=== PATIENT | male | born 1945 | race Caucasian/White ===

== ENCOUNTER 2020-02-25 02:00 | Emergency (ER) | payer MEDICARE, OTHER, SELFPAY ==
[2020-02-25 02:10] VITALS: BP 134/98; PULSE 78; RESP 16; TEMP 36.7; O2SAT 98; BMI 28.8
--- NOTE | 2020-02-25 02:20 | ECG_ITS ---
APPROVED REPORT Exam: Resting ECG HR:61 bpm ECG Measurements Heart Rate 61 AXES ME 202 P 25 QRSd 94 QRS -32 QT 418 T 44 QTc 420 <Conclusion> Normal sinus rhythm Left axis deviation Voltage criteria for left ventricular hypertrophy Abnormal ECG Electronically signed by : Oni Lamb, 02/26/2020 06:47:11
[2020-02-25 02:31] LABS: Basophils # 0.1 K/mm3 (0-0.2); Basophils % 0.5 % (0.1-2.0); Eosinophils # 0.2 K/mm3 (0.0-0.4); Eosinophils % 1.6 % (0.1-12.0); Hematocrit 40.9 % (42.0-52.0); Hemoglobin 14.1 g/dL (14.1-18.0); Lymphocytes # 1.5 K/mm3 (0.7-4.5); Lymphocytes % 14.3 % (10-50); Mean Corpuscular HGB Conc 34.6 g/dL (31.8-35.4); Mean Corpuscular Hemoglobin 29.4 pg (27.0-31.2); Mean Corpuscular Volume 85.1 fl (80-94); Mean Platelet Volume 9.5 fl (7.4-10.4); Monocytes # 0.8 K/mm3 (0.1-1.0); Monocytes % 7.3 % (1.7-9.3); Neutrophils # 8.2 K/mm3 (1.8-7.8); Neutrophils % 76.3 % (37.0-80.0); Platelet Count 174 K/mm3 (142-424); Red Blood Count 4.81 M/mm3 (4.60-6.20); Red Cell Distribution Width 13.8 % (11.5-17.5); White Blood Count 10.7 K/mm3 (4.8-10.8)
[2020-02-25 02:32] LABS: Anion Gap 11.1 mEq/L (5-15); Blood Urea Nitrogen 33 mg/dl (9-20); Calcium 9.5 mg/dl (8.4-10.2); Carbon Dioxide 23 mmol/L (22.0-30.0); Chloride 103 mmol/L (98-107); Creatinine Clearance Estimated 45 mL/min (50-200); Estimated Glomerular Filt Rate 39 ml/min (>60); GFR (African American) 48 ML/MIN (>60); Glucose 247 mg/dl (74-100); Potassium 4.1 mmoL/L (3.5-5.1); Sodium 133 mmol/L (136-145)
[2020-02-25 02:44] LABS: Troponin I 0.02 ng/ml (0.00-0.034)
--- NOTE | 2020-02-25 03:21 | HMH.EDDIZZ ---
ED Disposition Clinical Impression: Hypertensive urgency, Renal insufficiency, Diabetes 1.5, managed as type 2 Disposition: Home, Self-Care Condition on Discharge: Good Instructions: Dizziness, Nonvertigo Additional Instructions: see pcp wednesday for follow up Referrals: Provider,Referral, [Primary Care Provider] - - Critical Care Critical Care Time: No Attestation: On 02/25/20, the high probability of a clinically significant, sudden or life threatening deterioration of the following system(s) required my full and direct attention, intervention and personal management. The time I documented below is in addition to time spent performing reported procedures but includes the following listed in this critical care notation. Medical Decision Making - Medical Records Medical records reviewed: Yes: I reviewed the patient's medical records. - [place] Inquiry Pt receiving controlled substance: No Vital Signs: 02/25/20 02:10 Temperature 98.0 F Temperature Source Oral Pulse Rate [Right] 78 Respiratory Rate 16 Blood Pressure [Right Arm] 134/98 H Blood Pressure Mean [Right Arm] 110 Blood Pressure Source [Right Arm] Automatic Cuff Blood Pressure Position [Right Arm] Supine 02 Sat by Pulse Oximetry 98 Oxygen Delivery Method Room Air - Lab Data Lab results reviewed: Yes: I reviewed the patient's lab results. Lab Results 02/25/20 02:15: WBC 10.7, RBC 4.81, Hgb 14.1, Hct 40.9 L, MCV 85.1, MCH 29.4, MCHC 34.6, RDW 13.8, Plt Count 174, MPV 9.5, Neut % (Auto) 76.3, Lymph % (Auto) 14.3, [place] % (Auto) 7.3, Eos % (Auto) 1.6, Baso % (Auto) 0.5, Neut # (Auto) 8.2 H, Lymph # (Auto) 1.5, [place] # (Auto) 0.8, Eos # (Auto) 0.2, Baso # (Auto) 0.1 02/25/20 02:15: Sodium 133 L, Potassium 4.1, Chloride 103, Carbon Dioxide 23, Anion Gap 11.1, BUN 33 H, Creatinine 1.70 H, Estimated Creat Clear 45, Estimated GFR 39 L, Est GFR ( Amer) 48 L, Glucose 247 H, Calcium 9.5, Troponin I 0.02 Result diagrams: 02/25/20 02:15 02/25/20 02:15 Orders (Tests/Meds): ORDERS Category Date Time Status Hemoglobin A1C Stat Lab 02/25/20 03:24 Ordered Troponin I Q3H Lab 02/25/20 05:30 Ordered Troponin I Q3H Lab 02/25/20 08:30 Ordered - ECG Data Tracing #1 Normal Sinus Rhythm: Yes Ischemic changes: non-specific ST-T wave changes - Reevaluation(s) Time: 03:31 Reevaluation #1: doing better Medical Decision Narrative: no clinical evid of cva Dizzy HPI - General Chief Complaint: Dizziness Stated Complaint: High BP Leg is jerking;blurred vision Time Seen by Provider: 02/25/20 02:20 Mode of Arrival: Ambulatory Source of Information: Patient, Medical Record Limitations: No Limitations Description of Symptoms (Recalled from ER Triage Doc. 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 HPI Narrative: elevated bp and hx of dizzyness and lt leg twitching MD complaint: lightheadedness Onset (ago): hour(s) Timing: gradual onset, waxing/waning History of similar episodes: No History of trauma: No Severity: moderate Associated symptoms: denies other symptoms - Related Data Home Medications Medication Instructions Recorded Confirmed Atorvastatin Calcium [Atorvastatin 40 mg PO DAILY 02/25/20 02/25/20 40mg Tab] Glimepiride 4 mg PO DAILY 02/25/20 02/25/20 Hydralazine HCl 50 mg PO BID 02/25/20 02/25/20 Insulin Detemir [Levemir 20 units SQ BID 02/25/20 02/25/20 100units/mL 3mL flexpen] Isosorbide Mononitrate [Imdur 60mg 60 mg PO DAILY 02/25/20 02/25/20 ER tablet] carvediloL [Carvedilol 12.5mg Tab] 12.5 mg PO BID 02/25/20 02/25/20 Allergies Allergy/AdvReac Type Severity Reaction Status Date / Time No Known Allergies Allergy Verified 04/28/19 13:20 [facility] History - Hepatitis A Screen Drug use history?: No High risk sexual behaviors?: No History of sexually transmitted infection?: No Currently employed?: No
[2020-02-25 03:42] VITALS: BP 136/90; PULSE 76; RESP 14; TEMP 36.7; O2SAT 98
[2020-02-25 03:51] LABS: Hemoglobin A1C 6.6 % (4.0-6.0)
== END 2020-02-25 03:43 | disposition home or self-care (01) ==
PROVIDERS: Emergency Provider Emergency Medicine
DX: I16.1 Hypertensive emergency (principal); N28.9 Disorder of kidney and ureter, unspecified; E13.9 Other specified diabetes mellitus without complications; Z79.899 Other long term (current) drug therapy
CPT/HCPCS: 80048; 83036; 84484; 85025; 93005; 99282

== ENCOUNTER → 2021-05-30 10:17 | Outpatient (CLI) | payer MEDICARE, OTHER, SELFPAY ==
--- NOTE | 2021-05-30 | CA_ITS ---
APPROVED REPORT Exam: Pharmacologic Technologist: rahul camejo, Ht: 5 ft 8 in Wt: 195 lbs BSA: 2.02 m2 BP: 204/74 mmHg Rhythm: Sinus toby, abnormal Indications: CAD, Abn EKG Medical History Medical History: HTN Medications: Hydralazine,,,,, Isosorbide,,,,, Gabapentin,,,,, Carvedilol,,,,, INSULIN,,,,, Lipitor,,,,, Vit D,,,,, Hydroxyzine,,,,, Cardiac Risk Factors: HTN Stress Test Details Test: LEXISCAN HR Resting HR: 53 bpm Max Heart Rate (APMHR): 142.197517 bpm Max HR Achieved: 69 bpm Target HR (85% APMHR): 120.683294 bpm % of APMHR: 48.59 Recovery HR: 59 bpm BP Resting BP: 204/74 mmHg Max BP: 204/74 mmHg Recovery BP: 172.0/62.0 mmHg ECG Resting ECG: sinus toby, abnormal Clinical Exercise duration: 04:46 min Highest Stage Achieved: Stress ECG Conclusion Lexiscan portion completed. Pt complained SOB at peak infusion, resolved in recovery. No CP. Occasional PVC. Less than 1.5mm ST depression. Images to follow. Test Summary REST 07:12 . . 53 . 204/ 74 . . Stage 1 . . . . . . . Myoview Injected Stage 1 01:00 . . 59 . . . . Stage 2 01:00 . . 66 . . . . Stage 3 01:00 . . 64 . 169/ 64 . . Stage 4 01:00 . . 62 . . . . Stage 4 01:46 . . 60 . 180/ 61 . Stop exercise at 04:46 RECOVERY 01:00 . . 59 . 181/ 62 . . RECOVERY 02:00 . . 60 . 181/ 62 . . RECOVERY 03:00 . . 62 . 172/ 62 . . RECOVERY 04:00 . . 57 . 172/ 62 . . Electronically signed by : Melo Kemp MD 06/01/2021 08:50:31
--- NOTE | 2021-05-30 10:26 | CA_ITS ---
APPROVED REPORT EXAM: Comprehensive 2D, Doppler, and color-flow Echocardiogram [place] Driver: Veronique Mckinley CRT Ht: 5 ft 8 in Wt: 195lbs BSA: 2.02 BP: 128/84 mmHg Indications: Diabetes, Hyperlipidemia, Hypertension/HDD 2D Dimensions LVOT 1.45 cm (M/F) 1.5-2.5 M-Mode Dimensions RVDd 2.96 cm (0.9-2.6) LA Diam 4.24 cm (1.9-4.0) LVDd 5.84 cm (3.5-5.7) Ao Diam 4.22 cm (2.0-3.7) LVDs 4.48 cm (3.5-5.7) IVSd 2.13 cm (0.6-1.1) PWd 0.82 cm (0.6-1.1) EF (Teich) 45.90% FS 23.30% EDV (Teich) 169.20 mL TAPSE 1.74 (<1.7) ESV (Teich) 91.50 mL LV Diastology E Decel Time 300.00 (160-240 msec) E/A Ratio 1.00 MED E' 2.40 (< 7 cm/sec) MED A' 5.20 cm/s E'/MED E' Ratio 40.13 (>14) LAT E' 6.90 (<10 cm/sec) LAT A' 8.60 cm/s E/LAT E' Ratio 13.96 (>14) Aortic Valve AI PHT 570.00 ms AO Peak GR. 8.60 mmHg Mitral Valve MV A Velocity 96.00 (40-130 cm/s) E/A Ratio 1.00 MV Decel. Time 300.00 (160-240 ms) Pulmonary Valve PV Peak Velocity 178.00 (50-150 cm/s) Tricuspid Valve TR P. Velocity 246.00 cm/s RAP Estimate 10.00 mmHg RVSP 34.30 mmHg Left Ventricle Left atrium is mildly enlarged, left ventricle is normal size, mild concentric left ventricular hypertrophy, visually estimated ejection fraction 55% with no regional wall motion abnormality, grade 1 diastolic dysfunction seen with tissue Doppler evidence of raise left atrial pressure. Right Ventricle Right atrium and right ventricle are mildly enlarged with normal contractility. Aortic Valve Aortic valve is thickened and calcified without Doppler evidence of aortic stenosis, there is mild aortic insufficiency. Mitral Valve Mitral valve leaflets are minimally thickened, there is mild mitral regurgitation. Tricuspid Valve Tricuspid valve grossly normal, there is mild tricuspid regurgitation, tricuspid regurgitation jet velocity is inadequate for calculation of the right ventricular systolic pressure. Pulmonic Valve Pulmonic valve is minimally fibrosed, there is mild pulmonic insufficiency. Great Vessels Aortic root is normal size. No significant pericardial effusion noted. Conclusion 1. Mild biatrial enlargement, normal left ventricular size, mild concentric left ventricular hypertrophy, visually estimated ejection fraction 55% with no regional wall motion abnormality, grade 1 diastolic dysfunction seen with tissue Doppler evidence of raise left atrial pressure. 2. Mildly enlarged right ventricle with normal contractility. 3. Thickened and calcified aortic valve without aortic stenosis, there is mild aortic insufficiency. 4. Mild mitral and tricuspid regurgitation. 5. No significant pericardial effusion noted. Electronically signed by : Melo Kemp MD 05/30/2021 12:35:20
--- NOTE | 2021-05-30 10:26 | CA_ITS ---
APPROVED REPORT Relish Blender: Radha Ramirez RVT Laterality: Bilateral Study Quality: Good Indications: carotid bruit Risk Factors Hypertension: Hyperlipidemia Diabetes CAD Doppler Spectral Velocity Analysis ECA (R) 134.70/4.30 cm/s ECA (L) 268.20/13.70 cm/s dICA (R) 110.10/15.00 cm/s dICA (L) 94.50/16.50 cm/s Home (R) 127.20/17.10 cm/s Home (L) 87.00/15.00 cm/s pICA (R) 109.10/13.90 cm/s pICA (L) 103.50/16.50 cm/s dCCA (R) 119.80/13.90 cm/s dCCA (L) 92.00/5.30 cm/s pCCA (R) 96.20/9.60 cm/s pCCA (L) 104.80/6.40 cm/s Vert (R) 42.80/10.70 cm/s Vert (L) 67.70/7.70 cm/s ICA/CCA 1.06 ICA/CCA 1.13 Findings Study suggests 20-49% stenosis of the right internal cartoid artery. Study suggests 20-49% stenosis of the left internal cartoid artery. Antegrade flow seen bilateral vertebral arteries. Conclusion Study suggests 20-49% stenosis of the right internal cartoid artery. Study suggests 20-49% stenosis of the left internal cartoid artery. Antegrade flow seen bilateral vertebral arteries. Electronically signed by : Holger Dempsey MD 05/30/2021 14:20:29
--- NOTE | 2021-05-30 11:28 | NM_ITS ---
APPROVED REPORT Exam: Nuclear Stress Test Indication: fatigue Patient Location: Outpatient Stress Tech: Melissa Lewis [place] Tech:Paris SamuelESTEFANÍA RT(R)(N) Ht: 5 ft 8 in Wt: 195 lbs HR: 53 bpm BP: 204/74 mmHg BSA: 2.02 m2 BMI: 29.6 History: fatigue Procedure: Patient received a 0.4 mg of intravenous Lexiscan, resting heart rate 53 bpm, resting blood pressure 204/74 mmHg, with Lexiscan maximum heart rate achived was 69 bpm which is Less than 85 85 % of the maximum predicted heart rate and blood pressure was 204/74 mmHg. With Lexiscan, patient denied any complaint of chest pain. Electrocardiogram Resting electrocardiogram shows sinus rhythm nonspecific ST-T changes, with Lexiscan there is less than 1.[address] segment depression noted from the baseline EKG. The EKG portion of the Lexiscan is nondiagnostic. Cardiac Stress and Resting SPECT Images: Cardiac Stress and Resting SPECT images were obtained using technetium 99m Myoview 32.9 mCi stress and 10.89 mCi at rest. Gated SPECT for analysis of segmental wall motion and calculation of the ejection fraction also done. Prone images were also obtained. Cardiac stress and resting SPECT images show a small area of nontransmural myocardial scarring involving the posterolateral wall, computer derived ejection fraction is 53% with mild posterolateral wall hypokinesis, right ventricle is normal size and contractility. Conclusion: 1. The EKG portion of the Lexiscan is nondiagnostic. 2. Scintigraphic evidence of small area of nontransmural myocardial scarring involving the posterolateral wall, computer derived ejection fraction is 53% with segmental wall motion abnormality described above, right ventricle is normal size and contractility. 3. Abnormal Lexiscan Myoview study. Electronically signed by : Melo Kemp MD 06/01/2021 08:58:34
== END ==
PROVIDERS: PCP Nurse Practitioner Family; Visit Provider Internal Medicine
DX: E11.9 Type 2 diabetes mellitus without complications (principal); E78.5 Hyperlipidemia, unspecified; I10 Essential (primary) hypertension; I25.10 Atherosclerotic heart disease of native coronary artery without angina pectoris; N28.9 Disorder of kidney and ureter, unspecified; R09.89 Other specified symptoms and signs involving the circulatory and respiratory systems; Z95.1 Presence of aortocoronary bypass graft; Z79.4 Long term (current) use of insulin
CPT/HCPCS: 78452; 93017; 93306; 93880; A9502; J2785

== ENCOUNTER → 2021-06-04 12:22 | Outpatient (CLI) | payer MEDICARE, OTHER, SELFPAY ==
[2021-06-04 14:28] LABS: Anion Gap 17.4 mEq/L (5-15); Blood Urea Nitrogen 35 mg/dl (9-20); Calcium 9.4 mg/dl (8.4-10.2); Carbon Dioxide 24 mmol/L (22.0-30.0); Chloride 102 mmol/L (98-107); Estimated Glomerular Filt Rate 37 ml/min (>60); GFR (African American) 44 ML/MIN (>60); Glucose 170 mg/dl (74-100); Potassium 5.4 mmoL/L (3.5-5.1); Sodium 138 mmol/L (136-145)
== END ==
PROVIDERS: Visit Provider Nurse Practitioner Family
DX: E11.9 Type 2 diabetes mellitus without complications (principal); E78.5 Hyperlipidemia, unspecified; I10 Essential (primary) hypertension; I25.10 Atherosclerotic heart disease of native coronary artery without angina pectoris; N28.9 Disorder of kidney and ureter, unspecified; Z95.1 Presence of aortocoronary bypass graft; Z79.4 Long term (current) use of insulin
CPT/HCPCS: 36415; 80048

== ENCOUNTER → 2021-07-11 14:17 | Outpatient (CLI) | payer MEDICARE, OTHER, SELFPAY ==
--- NOTE | 2021-07-11 14:24 | XR_ITS ---
PROCEDURE: XR CHEST 2V CLINICAL HISTORY: Dyspnea, unspecified COMPARISON: No exams were available for comparison FINDINGS: Prior CABG. There is borderline cardiomegaly. Pulmonary vessels are slightly engorged. Patchy density is present in the left lung base suggesting an area of infiltrate. The lungs are otherwise clear Ankylosis of the thoracic spine. IMPRESSION: Mild CHF with possible left basilar infiltrate Dictated by: Holger Dempsey MD 07/11/2021 14:38 Holger Dempsey MD in [place] 07/11/2021 14:38
== END ==
PROVIDERS: PCP Nurse Practitioner Family; Visit Provider Nurse Practitioner Family
DX: R06.00 Dyspnea, unspecified (principal)
CPT/HCPCS: 71046

== ENCOUNTER → 2021-07-14 08:33 | Outpatient (CLI) | payer MEDICARE, OTHER, SELFPAY ==
[2021-07-14 09:03] LABS: Blood Urea Nitrogen 34 mg/dl (9-20); Estimated Glomerular Filt Rate 39 ml/min (>60); GFR (African American) 47 ML/MIN (>60)
== END ==
PROVIDERS: PCP Nurse Practitioner Family; Visit Provider Nurse Practitioner Family
DX: I69.392 Facial weakness following cerebral infarction (principal); R41.0 Disorientation, unspecified; F03.90 Unspecified dementia, unspecified severity, without behavioral disturbance, psychotic disturbance, mood disturbance, and anxiety
CPT/HCPCS: 36415; 82565; 84520

== ENCOUNTER → 2021-08-14 11:49 | Outpatient (CLI) | payer MEDICARE, OTHER, SELFPAY ==
[2021-08-14 13:37] LABS: Chloride 105 mmol/L (98-107); Potassium 4.7 mmoL/L (3.5-5.1); Sodium 141 mmol/L (136-145)
[2021-08-14 13:40] LABS: Anion Gap 15.7 mEq/L (5-15); Blood Urea Nitrogen 41 mg/dl (9-20); Calcium 9.3 mg/dl (8.4-10.2); Carbon Dioxide 25 mmol/L (22.0-30.0); Estimated Glomerular Filt Rate 37 ml/min (>60); GFR (African American) 44 ML/MIN (>60); Glucose 165 mg/dl (74-100)
== END ==
PROVIDERS: Visit Provider Physician Assistant
DX: E78.5 Hyperlipidemia, unspecified (principal); I10 Essential (primary) hypertension; I25.10 Atherosclerotic heart disease of native coronary artery without angina pectoris; I35.1 Nonrheumatic aortic (valve) insufficiency; N28.9 Disorder of kidney and ureter, unspecified; Z95.1 Presence of aortocoronary bypass graft
CPT/HCPCS: 36415; 80048

== ENCOUNTER 2021-12-04 01:49 | Emergency (ER) | payer MEDICARE, OTHER, SELFPAY ==
[2021-12-04 01:51] VITALS: BP 160/61; PULSE 52; RESP 16; TEMP 36.4; O2SAT 99; BMI 30.4
--- NOTE | 2021-12-04 02:03 | CT_ITS ---
PROCEDURE INFORMATION: Exam: CT Abdomen And Pelvis With Contrast Exam date and time: 12/04/2021 2:03 AM Age: 76 years old Clinical indication: Abdominal pain; Additional info: Abd pain TECHNIQUE: Imaging protocol: Computed tomography of the abdomen and pelvis with contrast. Radiation optimization: All CT scans at this facility use at least one of these dose optimization techniques: automated exposure control; mA and/or kV adjustment per patient size (includes targeted exams where dose is matched to clinical indication); or iterative reconstruction. Contrast material: ISOVUE; Contrast volume: 75 ml; Contrast route: IV; COMPARISON: CR XR CHEST 2V 07/11/2021 2:28 PM FINDINGS: Lungs: Moderate scarring and atelectasis in the lower lungs. Pleural spaces: Small pleural effusions, left larger than right. Heart: Coronary artery disease. Cardiomegaly. Aortic valve calcifications. Liver: Mild periportal edema is nonspecific. Gallbladder and bile ducts: Cholelithiasis. Pancreas: Normal. No ductal dilation. Spleen: Normal. No splenomegaly. Adrenal glands: Normal. No mass. Kidneys and ureters: Normal. No hydronephrosis. Stomach and bowel: Unremarkable. No obstruction. No mucosal thickening. Appendix: Unremarkable appendix. Intraperitoneal space: Unremarkable. No free air. No significant fluid collection. Vasculature: Interlobular septal thickening in the lung bases most likely represents pulmonary venous congestion. Advanced atherosclerotic disease of the arteries. Lymph nodes: Unremarkable. No enlarged lymph nodes. Urinary bladder: Borderline abnormal urinary bladder wall thickening. Reproductive: Mild prostate enlargement. Bones/joints: The lumbar spine demonstrates moderate degenerative changes at multiple levels. Status post median sternotomy. Soft tissues: Bilateral gynecomastia. Edema in the anterior abdominal wall is nonspecific. IMPRESSION: 1. Interlobular septal thickening in the lung bases most likely represents pulmonary venous congestion. 2. Mild periportal edema is nonspecific. Please exclude acute hepatitis. 3. Cholelithiasis. 4. Borderline abnormal urinary bladder wall thickening. Please exclude infection. 5. Small pleural effusions, left larger than right. 6. Edema in the anterior abdominal wall is nonspecific. Please exclude cellulitis.
[2021-12-04 02:15] LABS: Basophils % 0.5 % (0.1-2.0); Eosinophils # 0.1 K/mm3 (0.0-0.4); Eosinophils % 0.9 % (0.1-12.0); Hematocrit 31.9 % (42.0-52.0); Hemoglobin 10.9 g/dL (14.1-18.0); Lymphocytes # 0.7 K/mm3 (0.7-4.5); Lymphocytes % 7.1 % (10-50); Mean Corpuscular HGB Conc 34.1 g/dL (31.8-35.4); Mean Corpuscular Hemoglobin 30.2 pg (27.0-31.2); Mean Corpuscular Volume 88.4 fl (80-94); Mean Platelet Volume 10.1 fl (7.4-10.4); Monocytes # 0.5 K/mm3 (0.1-1.0); Monocytes % 5.4 % (1.7-9.3); Neutrophils # 8.4 K/mm3 (1.8-7.8); Neutrophils % 86.1 % (37.0-80.0); Platelet Count 168 K/mm3 (142-424); Red Blood Count 3.61 M/mm3 (4.60-6.20); Red Cell Distribution Width 14.6 % (11.5-17.5); White Blood Count 9.8 K/mm3 (4.8-10.8)
[2021-12-04 02:18] LABS: MANUAL DIFFERENTIAL MANUAL DIFFERENTIAL (MANUAL DIFF)
[2021-12-04 02:23] LABS: Alanine Aminotransferase 65 U/L (12-78); Albumin Level 3.8 g/dl (3.5-5.0); Albumin/Globulin Ratio 1.2 (1.1-1.8); Alkaline Phosphatase 193 U/L (38-126); Amylase 87 U/L (30-110); Anion Gap 10.2 mEq/L (5-15); Aspartate Amino Transferase 117 U/L (17-59); Bilirubin,Total 1.8 mg/dl (0.2-1.3); Blood Urea Nitrogen 41 mg/dl (9-20); Calcium 8.8 mg/dl (8.4-10.2); Carbon Dioxide 26 mmol/L (22.0-30.0); Chloride 105 mmol/L (98-107); Creatinine Clearance Estimated 43 mL/min (50-200); Estimated Glomerular Filt Rate 37 ml/min (>60); GFR (African American) 44 ML/MIN (>60); Globulin 3.1 g/dL (1.3-3.2); Glucose 249 mg/dl (74-100); Lipase 229 U/L (23-300); Potassium 4.2 mmoL/L (3.5-5.1); Sodium 137 mmol/L (136-145); Total Protein,Serum 6.9 g/dl (6.3-8.2)
[2021-12-04 02:28] LABS: C-Reactive Protein 16.4 mg/L (0-4)
--- NOTE | 2021-12-04 02:34 | HMH.EDNVD ---
ED Disposition Clinical Impression: Renal insufficiency Abdominal pain Qualifiers: Abdominal location: epigastric Qualified Code(s): R10.13 - Epigastric pain DM2 (diabetes mellitus, type 2) Qualifiers: Diabetes mellitus senior living insulin use: unspecified senior living insulin use status Diabetes mellitus complication status: with other specified complication Qualified Code(s): E11.69 - Type 2 diabetes mellitus with other specified complication Cholelithiasis Qualifiers: Cholelithiasis location: gallbladder Cholecystitis presence: without cholecystitis Biliary obstruction: without biliary obstruction Qualified Code(s): K80.20 - Calculus of gallbladder without cholecystitis without obstruction Disposition: Home, Self-Care Condition on Discharge: Good Instructions: DI for Acute Abdominal Pain Additional Instructions: see pcp for follow up Referrals: Provider,Referral, MD [Primary Care Provider] - - Critical Care Critical Care Time: No Attestation: On 12/04/21, the high probability of a clinically significant, sudden or life threatening deterioration of the following system(s) required my full and direct attention, intervention and personal management. The time I documented below is in addition to time spent performing reported procedures but includes the following listed in this critical care notation. Medical Decision Making - Medical Records Medical records reviewed: Yes: I reviewed the patient's medical records. - [place] Inquiry Pt receiving controlled substance: No Vital Signs: 12/04/21 01:51 Temperature 97.6 F Temperature Source Oral Pulse Rate [Right] 52 L Respiratory Rate 16 Blood Pressure [Right Arm] 160/61 H Blood Pressure Mean [Right Arm] 94 02 Sat by Pulse Oximetry 99 - Lab Data Lab results reviewed: Yes: I reviewed the patient's lab results. Lab Results 12/04/21 02:04: WBC 9.8, RBC 3.61 L, Hgb 10.9 L, Hct 31.9 L, MCV 88.4, MCH 30.2, MCHC 34.1, RDW 14.6, Plt Count 168, MPV 10.1, Neut % (Auto) 86.1 H, Lymph % (Auto) 7.1 L, [place] % (Auto) 5.4, Eos % (Auto) 0.9, Baso % (Auto) 0.5, Neut # (Auto) 8.4 H, Lymph # (Auto) 0.7, [place] # (Auto) 0.5, Eos # (Auto) 0.1, Baso # (Auto) 0.0, Total Counted 100, Neutrophils % (Manual) 89 H, Lymphocytes % (Manual) 10, Eosinophils % (Manual) 1, Platelet Estimate Normal, RBC Morphology Normal, ESR > 140 H 12/04/21 02:04: Sodium 137, Potassium 4.2, Chloride 105, Carbon Dioxide 26, Anion Gap 10.2, BUN 41 H, Creatinine 1.80 H, Estimated Creat Clear 43, Estimated GFR 37 L, Est GFR ( Amer) 44 L, Glucose 249 H, Calcium 8.8, Total Bilirubin 1.8 H, AST 117 H, ALT 65, Alkaline Phosphatase 193 H, C-Reactive Protein 16.4 H, Total Protein 6.9, Albumin 3.8, Globulin 3.1, Albumin/Globulin Ratio 1.2, Amylase 87, Lipase 229, Procalcitonin 0.131 12/04/21 02:04: Troponin I 0.01 12/04/21 04:00: Urine Color Yellow, Urine Appearance Clear, Urine pH 6.0, Ur Specific [place] 1.015, Urine Protein 1+, Urine Glucose (UA) Trace, Urine Ketones Negative, Urine Blood Negative, Urine Nitrate Negative, Urine Bilirubin Negative, Urine Urobilinogen 0.2, Ur Leukocyte Esterase Negative, Urine RBC 3-5, Urine WBC Occasional, Urine Bacteria Trace Result diagrams: 12/04/21 02:04 12/04/21 02:04 Orders (Tests/Meds): ED MEDICATIONS Generic Name Dose Route Start Last Admin Trade Name Freq PRN Reason Stop Dose Admin Sodium Chloride 1,000 mls @ 999 mls/hr 12/04/21 02:15 12/04/21 02:09 Sod Chlor 0.9% 1000ml Bag IV 12/04/21 03:15 999 mls/hr .Q1H1M BONNY Administration Sodium Chloride 8 ml 12/04/21 02:04 Sodium Chloride 0.9% 10ml Vial IV 01/03/22 02:03 NEEDED PRN dilute pepcid Discontinued Medications Generic Name Dose Route Start Last Admin Trade Name Freq PRN Reason Stop Dose Admin Famotidine 20 mg 12/04/21 02:04 12/04/21 02:09 Famotidine 20mg/2ml Vial IV 12/04/21 02:05 20 mg ONCE ONE Administration Iopamidol 75 ml 12/04/21 02:54 12/04/21 02:55 Iop
[2021-12-04 02:42] LABS: Erythrocyte Sedimentation Rate > 140 mm/hr (0-20); Procalcitonin 0.131 ng/mL (0.0-2.0)
[2021-12-04 03:05] LABS: Eosinophils % 1 % (0-3); Lymphocytes % 10 % (10-50); Neutrophils % 89 % (42-76); Total Cells Counted 100
[2021-12-04 03:06] LABS: Platelet Estimate Normal; RBC Morphology Normal; Troponin I 0.01 ng/ml (0.00-0.034)
--- NOTE | 2021-12-04 03:17 | ECG_ITS ---
APPROVED REPORT Exam: Resting ECG HR:61 bpm ECG Measurements Heart Rate 61 AXES MA 212 P 44 QRSd 106 QRS 1 QT 424 T 21 QTc 427 Conclusion SINUS RHYTHM WITH FIRST DEGREE AV BLOCK LEFT VENTRICULAR HYPERTROPHY AND ST-T CHANGE [VOLTAGE CRITERIA PLUS ST/T ABNORMALITY] ABNORMAL ECG UNCONFIRMED REPORT Electronically signed by : Oni Lamb MD 12/05/2021 19:24:40
[2021-12-04 03:18] VITALS: BP 147/54; PULSE 63; RESP 16; O2SAT 94
[2021-12-04 04:10] LABS: Microscopic, Urine URINE MICROSCOPIC (MICROSCOPIC)
[2021-12-04 04:11] LABS: Appearance,Urine CLEAR (Clear); Bilirubin,Urine Negative (Negative); Blood, Urine Negative (Negative); Color,Urine YELLOW (Yellow); Glucose,Urine (UA) TRACE (Negative); Ketones,Urine Negative (Negative); Leukocyte Esterase,Urine Negative (Negative); Nitrate,Urine Negative (Negative); Protein,Urine 1+ (Negative); Specific Gravity, Urine 1.015 (1.005-1.030); Urobilinogen,Urine 0.2 EU/dl (0.2)
[2021-12-04 04:33] LABS: Bacteria,Urine Trace /lpf; WBC,Urine Occasional #/hpf (0-3)
[2021-12-04 04:40] VITALS: BP 115/42; PULSE 63; RESP 16; TEMP 36.9; O2SAT 94
== END 2021-12-04 04:50 | disposition home or self-care (01) ==
PROVIDERS: Emergency Provider Emergency Medicine
DX: K80.20 Calculus of gallbladder without cholecystitis without obstruction (principal); N28.9 Disorder of kidney and ureter, unspecified; E11.65 Type 2 diabetes mellitus with hyperglycemia; Z95.1 Presence of aortocoronary bypass graft; Z79.899 Other long term (current) drug therapy
CPT/HCPCS: 74177; 80053; 81001; 82150; 83690; 84145; 84484; 85007; 85025; 85651; 86140; 93005; 96365; 96375; 99283; 99284; J2405; Q9967

== ENCOUNTER → 2022-03-30 10:26 | Outpatient (CLI) | payer MEDICARE, OTHER, SELFPAY ==
--- NOTE | 2022-03-30 10:31 | US_ITS ---
FINAL REPORT TECHNIQUE: Ultrasound images of the kidneys were obtained. CLINICAL HISTORY: .hypertension FINDINGS: US RETROPERITONEAL The right kidney measures 11.6 cm in length. It is normal in echogenicity. There is no hydronephrosis. Blood flow is noted. There is renal cortical thinning. The left kidney measures 12.5 cm in length. It is normal in echogenicity. There is no hydronephrosis. Blood flow is noted. There is renal cortical thinning. The spleen is enlarged measuring 13.3 cm in length. IMPRESSION: Bilateral renal cortical thinning. Splenomegaly. Reviewed, Interpreted and Dictated by Nick Bob III, MD Transcribed by Vivian Pa Authenticated and [facility]
== END ==
PROVIDERS: Visit Provider Nurse Practitioner Family
DX: N28.9 Disorder of kidney and ureter, unspecified (principal)
CPT/HCPCS: 76770

== ENCOUNTER → 2022-10-19 12:48 | Outpatient (CLI) | payer MEDICARE, OTHER, SELFPAY ==
--- NOTE | 2022-10-19 | US_ITS ---
FINAL REPORT CLINICAL HISTORY: never smoke, HTN, DM, hyperlipidemia, TIA/CVA, CAD, CABG, previous angioplasty on heart, bilateral claudication, right leg rest pain. FINDINGS: ANKLE-BRACHIAL PRESSURE INDICES Pressure indices are as follows: RIGHT LOWER EXTREMITY: Ankle-brachial pressure index: 0.5 LEFT LOWER EXTREMITY: Ankle-brachial pressure index: 1.1 CONCLUSION: No evidence of significant vascular disease of the left lower extremity. Moderate vascular disease of the right lower extremity. If indicated, CT angiogram or catheter angiogram may be helpful. Reviewed, Interpreted and Dictated by Nick Bob III, MD Transcribed by Vivian Pa Authenticated and [facility]
== END ==
PROVIDERS: Visit Provider Nurse Practitioner Family
DX: R09.89 Other specified symptoms and signs involving the circulatory and respiratory systems (principal)
CPT/HCPCS: 93923

== ENCOUNTER 2023-09-27 15:28 | Emergency (ER) | payer MEDICARE, OTHER, SELFPAY ==
[2023-09-27 15:29] VITALS: BP 135/47; PULSE 59; RESP 18; TEMP 36.4; O2SAT 98; BMI 28.1
--- NOTE | 2023-09-27 15:40 | PC.NURSE ---
Addendum entered by Lisandra Escobar, EMT 09/27/23 15:40: at BS Original Note: Dr. Storey
--- NOTE | 2023-09-27 15:48 | HMH.EDGENADL ---
Discharge Plan Disposition Patient Disposition: Xfer Short-Term Hosp Chief Complaint: Abdominal Pain Prescriptions Prescriptions: No Action carvedilol 25 mg tablet 25 mg PO BID thyroid (pork) [[place] Thyroid] 15 mg tablet 30 mg PO DAILY clotrimazole-betamethasone 1-0.05 % cream 1 applic TOPICAL BID hydrochlorothiazide 25 mg tablet 25 mg PO DAILY Tresiba FlexTouch U-100 100 unit/mL (3 mL) insulin pen 45 unit SQ BID hydroxyzine pamoate [Vistaril] 25 mg capsule 25 mg PO HS cholecalciferol (vitamin D3) [Vitamin D3] 25 mcg (1,000 unit) tablet,chewable 25 mcg PO DAILY losartan 50 MG tablet 50 mg PO DAILY isosorbide mononitrate 120 MG tablet extended release 24 hr 120 mg PO DAILY amlodipine 10 MG tablet 10 mg PO DAILY sennosides-docusate sodium 1 EACH tablet 1 each PO DAILY hydralazine 25 MG tablet 50 mg PO BID clopidogrel 75 MG tablet 75 mg PO DAILY aspirin 81 MG tablet,delayed release (DR/EC) 81 mg PO DAILY tamsulosin 0.4 MG capsule 0.4 mg PO HS epjwcavf-mgf-XB-lycopen-lutein 1 EACH tablet 1 each PO NEEDED PRN (Reason: Constipation) atorvastatin 40 MG tablet 40 mg PO DAILY insulin detemir U-100 100 unit/mL (3 mL) insulin pen 20 units SQ BID Referrals Follow up/Referrals: Belen Perez APRN [Primary Care Provider] - See instructions Clinical Impressions Clinical Impression: Chronic mesenteric ischemia, TAMIR (acute kidney injury) Instructions Patient Instructions: DI for Acute Abdominal Pain Discharge ED Provider: Kaleb Storey General Adult HPI General Chief complaint: Abdominal Pain Stated complaint: abd pain, HBP Time Seen by Provider: 09/27/23 15:33 History of Present Illness HPI narrative: 78-year-old male history of hypertension, hyperlipidemia, CAD, PAD, cholelithiasis, CKD 4, heart failure presenting with abdominal pain. Patient states has been getting worsening abdominal pain over the past 3 to 4 days. Made worse with p.o. intake. Made better with no p.o. intake. Patient has been having food aversion since that time. No fevers or chills, but patient has had nausea without vomiting. Last bowel movement today, patient is passing gas. No blood in the stool. Denies urinary symptoms. Related Data Home Medications Medication Instructions Recorded Confirmed atorvastatin 40 mg tablet 40 mg PO DAILY Cholesterol 02/25/20 12/04/21 insulin detemir U-100 100 unit/mL 20 units SQ BID Diabetes 02/25/20 12/04/21 (3 mL) subcutaneous pen carvedilol 25 mg tablet 25 mg PO BID High blood pressure 05/20/21 12/04/21 cholecalciferol (vitamin D3) 25 25 mcg PO DAILY . 08/21/21 12/04/21 mcg (1,000 unit) chewable tablet (Vitamin D3) clotrimazole-betamethasone 1 1 applic topical BID . 08/21/21 12/04/21 %-0.05 % topical cream hydrochlorothiazide 25 mg tablet 25 mg PO DAILY . 08/21/21 12/04/21 hydroxyzine pamoate 25 mg capsule 25 mg PO HS . 08/21/21 12/04/21 (Vistaril) insulin degludec 100 unit/mL (3 45 unit SQ BID Diabetes 08/21/21 12/04/21 mL) subcutaneous pen (Tresiba FlexTouch U-100 insulin) thyroid (pork) 15 mg tablet 30 mg PO DAILY thyroid 08/21/21 12/04/21 ([place] Thyroid) amlodipine 10 mg tablet 10 mg PO DAILY Hypertension 12/04/21 12/04/21 aspirin 81 mg tablet,delayed 81 mg PO DAILY Blood thinner 12/04/21 12/04/21 release clopidogrel 75 mg tablet 75 mg PO DAILY Blood thinner 12/04/21 12/04/21 hydralazine 25 mg tablet 50 mg PO BID High blood pressure 12/04/21 12/04/21 isosorbide mononitrate 120 mg 120 mg PO DAILY High blood pressure 12/04/21 12/04/21 tablet,extended release 24 hr losartan 50 mg tablet 50 mg PO DAILY Hypertension 12/04/21 12/04/21 pifrzsma-xhe-nyzog acid 500 1 each PO NEEDED PRN 12/04/21 12/04/21 mcg-lycopene 300 mcg-lutein 250 Constipation mcg tablet sennosides 8.6 mg-docusate sodium 1 each PO DAILY Supplement 12/04/21 12/04/21 50 mg t
[2023-09-27 16:16] LABS: Microscopic, Urine URINE MICROSCOPIC (MICROSCOPIC)
--- NOTE | 2023-09-27 16:16 | US_ITS ---
PROCEDURE INFORMATION: Exam: US Abdomen, Limited; Right Upper Quadrant Exam date and time: 09/27/2023 4:26 PM Age: 78 years old Clinical indication: Abdominal pain; Additional info: Abd pain, history of gallstones and colic TECHNIQUE: Imaging protocol: Real time ultrasound of the abdomen with image documentation. Limited exam focused on the right upper quadrant. COMPARISON: CT ABDOMEN PELVIS W CON 12/04/2021 2:42 AM FINDINGS: Liver: The liver is mildly echogenic consistent with steatosis. No focal lesions. Gallbladder: Contracted gallbladder containing multiple small gallstones. The gallbladder wall is thickened which is probably artifactual and due to gallbladder contraction. No pericholecystic fluid. Biliary ducts: No biliary ductal dilatation. The common bile duct is 0.4 cm in diameter. Pancreas: The pancreas is obscured by bowel gas. Right kidney: Normal. No mass. No hydronephrosis. The right kidney measures 10.1 cm in length. Portal venous: Normal caliber and patent portal vein. IMPRESSION: 1. Cholelithiasis. The gallbladder wall appears thickened but this is felt to be artifactual due to gallbladder contraction. No findings to suggest cholecystitis. 2. No biliary ductal dilatation.
[2023-09-27 16:17] LABS: Appearance,Urine CLEAR (Clear); Bilirubin,Urine Negative (Negative); Blood, Urine Negative (Negative); Color,Urine YELLOW (Yellow); Glucose,Urine (UA) Negative (Negative); Ketones,Urine Negative (Negative); Leukocyte Esterase,Urine Negative (Negative); Nitrate,Urine Negative (Negative); PH,Urine 5.5 (5.0-8.5); Protein,Urine 1+ (Negative); Urobilinogen,Urine 0.2 EU/dl (0.2)
[2023-09-27 16:22] LABS: Basophils % 0.3 % (0.1-2.0); Eosinophils # 0.1 K/mm3 (0.0-0.4); Eosinophils % 1.1 % (0.1-12.0); Hematocrit 35.5 % (42.0-52.0); Hemoglobin 12.6 g/dL (14.1-18.0); Lymphocytes # 1.1 K/mm3 (0.7-4.5); Lymphocytes % 8.8 % (10-50); Mean Corpuscular HGB Conc 35.5 g/dL (31.8-35.4); Mean Corpuscular Hemoglobin 31.7 pg (27.0-31.2); Mean Corpuscular Volume 89.4 fl (80-94); Mean Platelet Volume 9.3 fl (7.4-10.4); Monocytes # 0.6 K/mm3 (0.1-1.0); Monocytes % 4.9 % (1.7-9.3); Neutrophils # 10.4 K/mm3 (1.8-7.8); Neutrophils % 84.9 % (37.0-80.0); Platelet Count 160 K/mm3 (142-424); Red Blood Count 3.98 M/mm3 (4.60-6.20); Red Cell Distribution Width 12.8 % (11.5-17.5); White Blood Count 12.2 K/mm3 (4.8-10.8)
[2023-09-27 16:28] LABS: Chloride 100 mmol/L (98-107); Potassium 4.7 mmoL/L (3.5-5.1); Sodium 134 mmol/L (136-145)
[2023-09-27 16:30] LABS: Blood Urea Nitrogen 61 mg/dl (9-20); Creatinine Clearance Estimated 23 mL/min (50-200); Estimated Glomerular Filt Rate 19 ml/min (>60); GFR (African American) 24 ML/MIN (>60)
[2023-09-27 16:31] LABS: Alanine Aminotransferase 22 U/L (12-78); Albumin Level 4.5 g/dl (3.5-5.0); Albumin/Globulin Ratio 1.3 (1.1-1.8); Alkaline Phosphatase 84 U/L (38-126); Anion Gap 15.7 mEq/L (5-15); Aspartate Amino Transferase 34 U/L (17-59); Bilirubin,Total 0.6 mg/dl (0.2-1.3); Calcium 8.5 mg/dl (8.4-10.2); Carbon Dioxide 23 mmol/L (22.0-30.0); Globulin 3.5 g/dL (1.3-3.2); Glucose 162 mg/dl (74-100); Lipase 289 U/L (23-300)
[2023-09-27 16:43] LABS: Troponin I 0.02 ng/ml (0.00-0.034)
[2023-09-27 16:45] LABS: Squamous Epithelial Cell,Urine Occasional #/hpf (0-5)
[2023-09-27 17:01] VITALS: BP 162/49; PULSE 58; O2SAT 96
[2023-09-27 17:30] VITALS: BP 161/49; PULSE 56; O2SAT 97
--- NOTE | 2023-09-27 17:40 | ECG_ITS ---
APPROVED REPORT Exam: Resting ECG HR:58 bpm ECG Measurements Heart Rate 58 AXES QRSd 118 QRS -29 QT 450 T 53 QTc 446 Conclusion SUPRAVENTRICULAR BRADYCARDIA PROBABLE LATERAL MYOCARDIAL INFARCTION , PROBABLY OLD [35 ms Q WAVE IN I/aVL/V5/V6] ABNORMAL ECG UNCONFIRMED REPORT Electronically signed by : Oni Lamb MD 09/29/2023 18:43:22
--- NOTE | 2023-09-27 17:59 | CT_ITS ---
PROCEDURE INFORMATION: Exam: CTA Abdomen and Pelvis With Contrast Exam date and time: 09/27/2023 6:25 PM Age: 78 years old Clinical indication: Other: Concern for mesenteric ischemia TECHNIQUE: Imaging protocol: Computed tomographic angiography of the abdomen and pelvis with contrast. Exam focused on the arteries. 3D rendering (Not supervised by radiologist): MIP and/or 3D reconstructed images were created by the technologist. Radiation optimization: All CT scans at this facility use at least one of these dose optimization techniques: automated exposure control; mA and/or kV adjustment per patient size (includes targeted exams where dose is matched to clinical indication); or iterative reconstruction. Contrast material: ISOVUE; Contrast volume: 100 ml; Contrast route: INTRAVENOUS (IV); REPORTING DATA: Count of CT and Cardiac NM exams in prior 12 months: This patient has received 0 known CTs and 0 known cardiac nuclear medicine studies in the 12 months prior to the current study. COMPARISON: 1. CT ABDOMEN PELVIS W CON 12/04/2021 2:42 AM 2. US ABDOMEN LIMITED 09/27/2023 4:26 PM FINDINGS: Lungs: Bibasilar atelectasis. Left lower lobe calcified granuloma. Pleural spaces: Small bilateral pleural effusions. Coronary arteries: Moderate coronary artery calcifications. Aorta: Severe abdominal aortic atherosclerotic disease without aneurysm. Large focus of calcified plaque in the abdominal aorta just distal to the renal arteries is causing high-grade stenosis. Celiac trunk and mesenteric arteries: Moderate calcified plaque in the proximal celiac artery with moderate stenosis. Severe calcified plaque in the superior mesenteric artery with a short segment of occlusion and distal collateral flow. Calcified plaque at the origin of the inferior mesenteric artery without significant stenosis. Renal arteries: Severe calcified plaque in the bilateral renal arteries with bilateral high-grade stenosis. Right iliac arteries: Severe calcified plaque in the right common and internal iliac arteries. Occlusion of the proximal right internal iliac artery with distal collateral flow. No significant atherosclerotic plaque in the right external iliac artery. Right femoral/popliteal arteries: Severe calcified plaque in the right common femoral artery with high-grade stenosis. Left iliac arteries: Severe calcified plaque in the left common and internal iliac arteries. No significant atherosclerotic plaque in the left external iliac artery. Left femoral/popliteal arteries: Moderate calcified plaque in the left common femoral artery with moderate stenosis. Liver: No mass. Gallbladder and bile ducts: Decompressed gallbladder containing multiple small gallstones. No biliary ductal dilatation. Pancreas: Unremarkable. No mass. No ductal dilation. Spleen: Unremarkable. No splenomegaly. Adrenal glands: Unremarkable. No mass. Kidneys and ureters: 1.0 cm right upper pole renal simple cyst. No hydronephrosis or urinary tract calculi. Stomach and bowel: Mild scattered small bowel dilatation with air-fluid levels. There is also fluid in the ascending and transverse colon. No bowel wall thickening. Appendix: No evidence of appendicitis. Intraperitoneal space: Unremarkable. No free air. No significant fluid collection. Lymph nodes: Unremarkable. No enlarged lymph nodes. Urinary bladder: Unremarkable. No mass. Reproductive: Enlarged prostate. Bones/joints: Severe lumbar spine degenerative change. Soft tissues: Small fat containing right inguinal hernia. IMPRESSION: 1. Severe atherosclerotic disease. 2. 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 3. 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 4. Chavez
[2023-09-27 18:00] VITALS: BP 157/53; PULSE 60; RESP 18; O2SAT 98
[2023-09-27 18:17] LABS: Lactic Acid 0.9 mmol/L (0.7-2.1)
[2023-09-27 18:29] LABS: Troponin I 0.02 ng/ml (0.00-0.034)
[2023-09-27 18:35] VITALS: PULSE 64; O2SAT 98
--- NOTE | 2023-09-27 18:36 | [facility].ITSTN ---
GFR completion/results were overrode for the use of contrast media by the Physician on a risk vs. benefit situation with this patient.
--- NOTE | 2023-09-27 19:10 | PC.NURSE ---
Pt scans power shared to [facility]
[2023-09-27 23:22] VITALS: BP 168/75; PULSE 75; RESP 19; TEMP 36.8; O2SAT 98
== END 2023-09-27 23:26 | disposition short-term general hospital (02) ==
PROVIDERS: Emergency Provider Emergency Medicine; PCP Nurse Practitioner Family
DX: K55.1 Chronic vascular disorders of intestine (principal); N17.9 Acute kidney failure, unspecified; I13.0 Hypertensive heart and chronic kidney disease with heart failure and stage 1 through stage 4 chronic kidney disease, or unspecified chronic kidney disease; I50.9 Heart failure, unspecified; N18.4 Chronic kidney disease, stage 4 (severe); I25.10 Atherosclerotic heart disease of native coronary artery without angina pectoris; I73.9 Peripheral vascular disease, unspecified
CPT/HCPCS: 36415; 74174; 76705; 80053; 81001; 83605; 83690; 84484; 85025; 93005; 96361; 96374; 99291; Q9967

== ENCOUNTER 2023-12-24 11:08 | Outpatient (CLI) | payer MEDICARE, OTHER, SELFPAY ==
--- NOTE | 2023-12-24 | CA_ITS ---
APPROVED REPORT EXAM: Comprehensive 2D, Doppler, and color-flow Echocardiogram Docking Pilot: Nidhi Grace, RCS, RVS Ht: 5 ft 8 in Wt: 208lbs BSA: 2.08 BP: 160/80 mmHg Indications: CAD HX-CABG, STROKE, DIASTOLIC DYSFUNCTION, CHF, MURMURS 2D Dimensions Aortic Root 3.08 cm M: 3.1 - 3.7 LA Volume 126.00 mL Left Atrium 4.25 cm M: 3.0 - 4.0 LA Volume Index 60.58 mL/m2 (M/F) 16-34 RVID Base (AP4) 4.68 cm (M/F) 2.5-4.1 EF AP4 53.90 % LVOT 1.76 cm (M/F) 1.5-2.5 GL Strain -15.9 % M-Mode Dimensions RVDd 3.88 cm (0.9-2.6) LVDd 5.36 cm (3.5-5.7) Ao Diam 3.58 cm (2.0-3.7) LVDs 3.76 cm (3.5-5.7) IVSd 1.56 cm (0.6-1.1) PWd 1.37 cm (0.6-1.1) EF (Teich) 56.50% EPSs 1.07 cm FS 29.90% EDV (Teich) 138.90 mL TAPSE 2.15 (<1.7) ESV (Teich) 60.40 mL LV Diastology E Decel Time 258 (160-240 msec) E/A Ratio 2.0 MED E' 6.5 (>= 7 cm/sec) MED A' 4.90 cm/s E'/MED E' Ratio 24.23 (<= 14) LAT E' 5.4 (>= 10 cm/sec) LAT A' 6.60 cm/s E/LAT E' Ratio 29.17 (<= 14) Pulm Vein s 34.00 cm/sec Aortic Valve LVOT Max 111.0 (70-110 cm/s) TAMMI Index 0.68 cm2/m2 LVOT VTI 28.23 cm AoV Peak Félix. 186.0 (50-130 cm/s) AI PHT 460.00 ms AO Mean GR. 6.90 (<5 mmHg) AO VTI 48.5 (18-25 cm) TAMMI (VTI) 1.42 (2.5-4.5 cm2) Mitral Valve MV E Max Félix. 158.0 (40-130 cm/s) MV A Velocity 79.0 (40-130 cm/s) E/A Ratio 1.99 MV Decel. Time 258 (160-240 ms) MV Mean Gr. 3.70 (<2mmHg) Pulmonary Valve ND End VMAX 221.0 cm/s Tricuspid Valve TR P. Velocity 298.00 cm/s RAP Estimate 10.00 mmHg RVSP 45.60 mmHg Left Ventricle The left ventricle is normal size. The left ventricular systolic function is normal. The left ventricular ejection fraction is within the normal range. There is increased LV wall thickness. There is normal LV segmental wall motion. Grade 3 diastolic dysfunction is present. LVEF is 60%. Right Ventricle The right ventricle is mildly dilated. The right ventricular systolic function is normal. Atria Left atrium is severely dilated. Right atrium is moderately dilated. There is no Doppler evidence of interatrial shunt. Aortic Valve The aortic valve is moderately thickened. Aortic sclerosis is present, with no evidence of aortic stenosis. Mild aortic regurgitation. Mitral Valve The mitral valve leaflets are mildly thickened. No evidence of mitral valve stenosis. Mild to moderate mitral regurgitation. Tricuspid Valve The tricuspid valve leaflets are thin and pliable. Moderate tricuspid regurgitation is present. RVSP is 45-50 mmHg. Pulmonic Valve The pulmonary valve is normal in structure. Mild pulmonic regurgitation. Great Vessels The aortic root is normal in size. The ascending aorta is not well-visualized. The IVC is dilated and collapses < 50% with respirophasic variation. RA pressure is estimated at 15 mmHg. Pericardium There is no pericardial effusion. Other Information Study Quality: Fair Conclusion Normal biventricular systolic function. Grade 3 diastolic dysfunction. Mild RV dilation. Biatrial dilation. Mild AI. Mild to moderate MR. Moderate TR. Mild PI. RVSP 45-50 mmHg. Electronically signed by : Delmy Carter MD 12/26/2023 23:17:44
== END 2023-12-24 23:59 ==
LOC: RT 11:09
PROVIDERS: PCP Nurse Practitioner Family; Visit Provider Nurse Practitioner Family
DX: I50.9 Heart failure, unspecified (principal); I51.89 Other ill-defined heart diseases
CPT/HCPCS: 93306

== ENCOUNTER 2024-01-20 11:47 | Outpatient (CLI) | payer MEDICARE, OTHER, SELFPAY ==
[2024-01-20 14:11] LABS: Chloride 108 mmol/L (98-107); Sodium 139 mmol/L (136-145)
[2024-01-20 14:14] LABS: Alanine Aminotransferase 16 U/L (12-78); Albumin Level 3.8 g/dl (3.5-5.0); Alkaline Phosphatase 59 U/L (38-126); Aspartate Amino Transferase 28 U/L (17-59); Bilirubin,Direct 0.4 mg/dl (0.0-0.4); Bilirubin,Indirect 0.1 mg/dL (0.0-0.9); Bilirubin,Total 0.5 mg/dl (0.2-1.3); Bilirubin,Unconjugated 0.1 mg/dL (0.0-1.1); Blood Urea Nitrogen 66 mg/dl (9-20); Calcium 9.1 mg/dl (8.4-10.2); Carbon Dioxide 23 mmol/L (22.0-30.0); Cholesterol 85 mg/dl (140-200); Estimated Glomerular Filt Rate 17 ml/min (>60); GFR (African American) 20 ML/MIN (>60); Glucose 156 mg/dl (74-100); Total Protein,Serum 6.4 g/dl (6.3-8.2); Triglycerides 119 mg/dl (30-150); VLDL Cholesterol 24 mg/dL (0-40)
[2024-01-20 14:15] LABS: Chol/HDL Ratio 3.3 (1-3.5); HDL Cholesterol 26 mg/dl (40-60)
[2024-01-20 14:26] LABS: Direct LDL Cholesterol 44.23 mg/dL (100-129)
== END 2024-01-20 23:59 | disposition home or self-care (01) ==
LOC: LAB 11:48
PROVIDERS: PCP Nurse Practitioner Family; Visit Provider Nurse Practitioner
DX: I10 Essential (primary) hypertension (principal); I35.1 Nonrheumatic aortic (valve) insufficiency; I51.89 Other ill-defined heart diseases; E78.2 Mixed hyperlipidemia; Z95.1 Presence of aortocoronary bypass graft; I25.10 Atherosclerotic heart disease of native coronary artery without angina pectoris; Z79.899 Other long term (current) drug therapy
CPT/HCPCS: 36415; 80048; 80061; 80076

== ENCOUNTER 2024-02-08 12:01 | Outpatient (CLI) | payer MEDICARE, OTHER, SELFPAY ==
[2024-02-08 13:03] LABS: Anion Gap 15.2 mEq/L (5-15); Calcium 9.3 mg/dl (8.4-10.2); Carbon Dioxide 22 mmol/L (22.0-30.0); Chloride 107 mmol/L (98-107); Estimated Glomerular Filt Rate 19 ml/min (>60); GFR (African American) 23 ML/MIN (>60); Glucose 64 mg/dl (74-100); Potassium 4.2 mmoL/L (3.5-5.1); Sodium 140 mmol/L (136-145)
[2024-02-08 14:50] LABS: Blood Urea Nitrogen 87 mg/dl (9-20)
== END 2024-02-08 23:59 | disposition home or self-care (01) ==
LOC: LAB 12:02
PROVIDERS: PCP Nurse Practitioner Family; Visit Provider Nurse Practitioner
DX: R42 Dizziness and giddiness (principal); I65.29 Occlusion and stenosis of unspecified carotid artery; I10 Essential (primary) hypertension; N17.9 Acute kidney failure, unspecified
CPT/HCPCS: 36415; 80048

== ENCOUNTER 2024-02-20 02:09 | Emergency (ER) | payer MEDICARE, OTHER, SELFPAY ==
--- NOTE | 2024-02-19 02:30 | ECG_ITS ---
APPROVED REPORT Exam: Resting ECG HR:55 bpm ECG Measurements Heart Rate 55 AXES WA 205 P 40 QRSd 150 QRS -36 QT 491 T 3 QTc 481 Conclusion SINUS BRADYCARDIA LEFT AXIS DEVIATION [QRS AXIS < -30] RIGHT BUNDLE BRANCH BLOCK [120+ ms QRS DURATION, UPRIGHT V1, 40+ ms S IN I/aVL/V4/V5/V6] ABNORMAL ECG Electronically signed by : JAMES ALDANA, 02/20/2024 06:44:04
[2024-02-20 02:10] VITALS: BP 138/60; PULSE 60; RESP 60; TEMP 36.6; O2SAT 95; BMI 28.1
--- NOTE | 2024-02-20 02:22 | XR_ITS ---
PROCEDURE INFORMATION: Exam: XR Abdomen Exam date and time: 02/20/2024 2:28 AM Age: 78 years old Clinical indication: Abdominal pain; Additional info: Abd pain distension TECHNIQUE: Imaging protocol: Radiologic exam of the abdomen. Views: 2 Views. Upright and supine views. COMPARISON: CT ANGIO ABDOMEN PELVIS 09/27/2023 6:25 PM FINDINGS: Gastrointestinal tract: Diffuse air distension of the right and transverse colon and mildly displaces the several loops of small bowel. Intraperitoneal space: No free air. Bones/joints: Unremarkable for age. IMPRESSION: Air distended colon and small bowel may represent ileus.
--- NOTE | 2024-02-20 02:23 | CT_ITS ---
PROCEDURE INFORMATION: Exam: CTA Abdomen and Pelvis With Contrast Exam date and time: 02/20/2024 2:52 AM Age: 78 years old Clinical indication: Abdominal pain; Acute; Additional info: Abd pain distension TECHNIQUE: Imaging protocol: Computed tomographic angiography of the abdomen and pelvis with contrast. Exam focused on the arteries. 3D rendering (Not supervised by radiologist): MIP and/or 3D reconstructed images were created by the technologist. Radiation optimization: All CT scans at this facility use at least one of these dose optimization techniques: automated exposure control; mA and/or kV adjustment per patient size (includes targeted exams where dose is matched to clinical indication); or iterative reconstruction. Contrast material: ISOVUE; Contrast volume: 100 ml; Contrast route: INTRAVENOUS (IV); COMPARISON: CT ANGIO ABDOMEN PELVIS 09/27/2023 6:25 PM FINDINGS: Aorta: No aortic aneurysm. No aortic dissection. There is severe calcific atherosclerotic disease. There is a greater than 50% stenosis of the proximal infrarenal abdominal aorta. Celiac trunk and mesenteric arteries: There is approximate 50% stenosis at the origin of the celiac artery. There is proximal occlusion of the SMA with reconstitution a few cm after its origin. Renal arteries: No occlusion. Greater than 50% stenosis at the origin of the renal arteries. Right iliac arteries: No occlusion or significant stenosis. Right femoral/popliteal arteries: Severe calcific stenosis of the distal right common femoral artery. Left iliac arteries: No occlusion or significant stenosis. Liver: No mass. Gallbladder and bile ducts: Cholelithiasis is present. Mild prominence of the gallbladder wall. Pancreas: Unremarkable. No mass. No ductal dilation. Spleen: Unremarkable. No splenomegaly. Adrenal glands: Unremarkable. No mass. Kidneys and ureters: The kidneys demonstrate unobstructed function. Cortical hypodensity upper pole right kidney too small to fully characterize. Stomach and bowel: There is significant air distension of the ascending and transverse colon. No obstructing lesion. Mildly prominent fluid-filled loops of small bowel present as well. Appendix: No evidence of appendicitis. Intraperitoneal space: There is mild ascites. Lymph nodes: Unremarkable. No enlarged lymph nodes. Urinary bladder: The bladder is decompressed by a Mercado catheter. Reproductive: The prostate gland is mildly enlarged. Bones/joints: Significant degenerative changes of the lumbar spine most severe at the L2-L3 and L3-L4 levels. No acute fracture. Soft tissues: There are fat containing bilateral inguinal hernias. There is dependent body wall edema. IMPRESSION: 1. No acute arterial finding. 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 2. New mild ascites and body wall edema. 3. Cholelithiasis with mildly prominent gallbladder wall. There is surrounding fluid however, ascites is present. Further evaluation with right upper quadrant ultrasound is recommended. 4. Significant air distension of the ascending and transverse colon without evidence of obstruction. Mildly prominent fluid-filled loops of small bowel without evidence of obstruction. The appearance of the bowel is similar to the prior exam. If there is clinical concern for a developing bowel obstruction, follow-up imaging is recommended. 5. Other nonurgent findings as detailed.
--- NOTE | 2024-02-20 02:25 | CT_ITS ---
PROCEDURE INFORMATION: Exam: CTA Chest With Contrast Exam date and time: 02/20/2024 2:52 AM Age: 78 years old Clinical indication: Other: Abd pain; Additional info: Abd pain known sma TECHNIQUE: Imaging protocol: Computed tomographic angiography of the chest with contrast. Exam focused on the arteries. 3D rendering (Not supervised by radiologist): MIP and/or 3D reconstructed images were created by the technologist. Radiation optimization: All CT scans at this facility use at least one of these dose optimization techniques: automated exposure control; mA and/or kV adjustment per patient size (includes targeted exams where dose is matched to clinical indication); or iterative reconstruction. Contrast material: ISOVUE; Contrast volume: 100 ml; Contrast route: INTRAVENOUS (IV); COMPARISON: CR XR CHEST 2V 07/11/2021 2:28 PM FINDINGS: Pulmonary arteries: Normal. No pulmonary emboli. Aorta: Moderate calcific disease. No aortic aneurysm. No aortic dissection. Lungs: There is diffuse interstitial prominence and ground-glass opacities. The findings suggest pulmonary edema. Pleural spaces: There is a small right and small to moderate left pleural effusion. Heart: The heart is enlarged. Coronary arteries: Evidence of prior CABG. Lymph nodes: Unremarkable. No enlarged lymph nodes. Bones/joints: Diffuse significant degenerative changes of the thoracic spine and imaged cervical spine. No acute fracture. Soft tissues: Unremarkable. IMPRESSION: 1. Pulmonary edema and bilateral pleural effusions. 2. No acute vascular abnormality. 3. Cardiomegaly.
--- NOTE | 2024-02-20 02:26 | HMH.EDGENADL ---
Discharge Plan Disposition Chief Complaint: Abdominal Pain Prescriptions Prescriptions: No Action terazosin 5 mg capsule 5 mg PO DAILY sennosides [senna] 8.6 mg tablet 8.6 mg PO DAILY pantoprazole 40 mg tablet,delayed release (DR/EC) 40 mg PO DAILY multivitamin with iron [Daily Multiple Vitamins/Iron] Tablet 1 tab PO DAILY rosuvastatin 20 mg tablet 20 mg PO DAILY ranolazine 500 mg tablet extended release 12 hr 500 mg PO DAILY thyroid (pork) [[place] Thyroid] 15 mg tablet 15 mg PO DAILY thyroid (pork) [[place] Thyroid] 60 mg tablet 60 mg PO DAILY Eliquis 5 mg tablet 5 mg PO BID hydralazine 25 mg tablet 25 mg PO DAILY Qty: 30 3RF losartan 25 mg tablet 25 mg PO DAILY Qty: 30 3RF allopurinol 100 mg tablet 100 mg PO .every other day spironolactone [Aldactone] 25 mg tablet 25 mg PO DAILY 90 Days Qty: 90 2RF nifedipine 60 mg tablet extended release 60 mg PO BID 90 Days Qty: 180 3RF furosemide 40 mg tablet 40 mg PO .COMPLEX 90 Days Qty: 135 3RF Rx Instructions: 40 mg orally every other day- alternating with 2 tabs (80mg) QOD; carvedilol 25 mg tablet 25 mg PO BID thyroid (pork) [[place] Thyroid] 15 mg tablet 30 mg PO DAILY Tresiba FlexTouch U-100 100 unit/mL (3 mL) insulin pen 45 unit SQ BID isosorbide mononitrate 120 MG tablet extended release 24 hr 120 mg PO DAILY clopidogrel 75 MG tablet 75 mg PO DAILY insulin detemir U-100 100 unit/mL (3 mL) insulin pen 20 units SQ BID Referrals Follow up/Referrals: Belen Perez APRN [Primary Care Provider] - See instructions Instructions Patient Instructions: DI for Acute Abdominal Pain Discharge ED Provider: Nicole Alberts General Adult HPI General Chief complaint: Abdominal Pain Stated complaint: stomach pain, vomiting Time Seen by Provider: 02/20/24 02:13 History of Present Illness HPI narrative: 78-year-old male with known chronic mesenteric ischemia, hypertension, CAD presents to the ER with concerns of abdominal pain. Patient states he started having abdominal pain approximately 12 hours ago, in the last 1 to 2 hours it has significantly worsened. He feels like there is a lump on the right side of his abdomen but his entire abdomen is painful. Daughter at bedside states abdomen is significantly distended compared to normal, patient also supports this statement. Patient states he is nauseous but not had any vomiting, he has not had diarrhea or constipation, he has been having difficulty urinating since his pain started. 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 Reportedly he is being managed with blood thinners. He is on Eliquis and Plavix. Denies fever or other associated symptoms at this time. Related Data Home Medications Medication Instructions Recorded Confirmed insulin detemir U-100 100 unit/mL 20 units SQ BID Diabetes 02/25/20 02/20/24 (3 mL) subcutaneous pen carvedilol 25 mg tablet 25 mg PO BID High blood pressure 05/20/21 02/20/24 insulin degludec 100 unit/mL (3 45 unit SQ BID Diabetes 08/21/21 02/20/24 mL) subcutaneous pen (Tresiba FlexTouch U-100 insulin) thyroid (pork) 15 mg tablet 30 mg PO DAILY thyroid 08/21/21 02/20/24 ([place] Thyroid) clopidogrel 75 mg tablet 75 mg PO DAILY Blood thinner 12/04/21 02/20/24 isosorbide mononitrate 120 mg 120 mg PO DAILY High blood pressure 12/04/21 02/20/24 tablet,extended release 24 hr apixaban 5 mg tablet (Eliquis) 5 mg PO BID 01/20/24 02/20/24 multivitamin with iron (Daily 1 tab PO DAILY 01/20/24 02/20/24 Multiple Vitamins with Iron tablet) pantoprazole 40 mg tablet,delayed 40 mg PO DAILY 01/20/24 02/20/24 release ranolazine 500 mg tablet,extended 500 mg PO DAILY 01/20/24 02/20/24 release,12 hr rosuvastatin 20 mg tablet 20 mg PO DAILY 01/20/24 02/20/24 sennosides 8.6 mg tablet (senna) 8.6 mg PO DAILY 01/20/24 02/20/24 terazosin 5 mg capsule 5 mg PO DAILY 01/20/24 02/20/24 thyroid (pork) 15 mg tablet 15 mg PO DAILY 01/20/24 02/20/24 ([place] Thyroid) thyroid (pork) 60 mg tablet 60 mg PO DAILY 01/20/24 02/20/24 ([place] Thyroid) allopurinol 100 mg tablet 100 mg PO .every other day 02/07/24 02/20/24 Previous Rx's Medication Instructions Recorded hydralazine 25 mg tablet 25 mg PO DAILY #30 tabs 01/20/24 losartan 25 mg tablet 25 mg PO DAILY #30 tabs 01/20/24 furosemide 40 mg tablet 40 mg PO .COMPLEX 90 days #135 tabs 02/07/24 nifedipine 60 mg tablet,extended 60 mg PO BID 90 days #180 tabs 02/07/24 release spironolactone 25 mg tablet 25 mg PO DAILY 90 days #90 tabs 02/07/24 (Aldactone) Allergies Allergy/AdvReac Type Severity Reaction Status Date / Time No Known Allergies Allergy Verified 02/07/24 10:16 [facility] Disclaimer: The information contained in this section may have been updated after the patient was seen, as this information can be updated by other users. Medical History (Updated 02/07/24 @ 10:48 by Po Bourgeois RN) Dizziness Carotid artery stenosis CHF (congestive heart failure) Kidney failure Claudication Thyroid disease Atrial fibrillation HTN (hypertension) Diabetes Stroke Heart failure Occlusion of superior mesenteric artery Social History Smoking Status: Former smoker alcohol intake: never substance use type: denies use current occupational status: retired Travel in the last 8 weeks: Inside the [place] ROS Obtained: Yes All systems reviewed & no additional complaints except as documented Constitutional Constitutional: Denies chills, Denies fever(s), Denies headache(s) and Denies weakness Eyes Eyes: Denies change in vision ENT Ears, Nose, Mouth, and Throat: Denies dizziness, Denies headache(s), Denies nasal congestion and Denies sore throat Cardiovascular Cardiovascular: Denies chest pain, Denies dyspnea and Denies leg edema Respiratory Respiratory: Denies cough and Denies dyspnea Gastrointestinal Gastrointestingal: Reports abdominal pain and nausea; Denies constipation, diarrhea or vomiting Genitourinary Male Genitourinary: Reports difficulty urinating Musculoskeletal Musculoskeletal: Denies arthralgias, Denies myalgias, Denies numbness and Denies tingling Integumentary/Breasts Skin/Breast: Denies change in pigmentation Neurologic Neurologic: Denies dizziness, Denies headache(s), Denies numbness, Denies tingling and Denies weakness Physical Exam General General appearance: alert and in no apparent distress Head Head exam: atraumatic and normocephalic Eye Eye exam: Present PERRL and EOMI ENT ENT exam: Present mucous membranes moist Neck Neck exam: Present normal inspection and full ROM Chest Chest inspection: Present symmetric chest wall rise Respiratory Respiratory exam: Absent respiratory distress or stridor Cardiovascular Cardiovascular exam: Present regular rate and normal rhythm Abdominal Exam Abdominal exam: Present soft, distention, tenderness, guarding and rebound Comment: Peritonitic, acute abdomen Extremities Exam Extremities exam: Present full ROM Neurological Exam Neurological exam: Present alert and oriented X3; Absent motor sensory deficit Psychiatric Psychiatric exam: Present normal affect and normal mood Skin Skin exam: Present warm and dry Medical Decision Making [place] Inquiry Pt receiving controlled substance: No Vital Signs: 02/20/24 02:10 Temperature 97.8 F Temperature Source Axillary Pulse Rate [Left] 60 Respiratory Rate 60 H Blood Pressure [Right Arm] 138/60 Blood Pressure Mean [Right Arm] 86 02 Sat by Pulse Oximetry 95 Oxygen Delivery Method Room Air Lab Data Lab Results 02/20/24 02:20: WBC 9.5, RBC 3.48 L, Hgb 10.2 L, Hct 31.9 L, MCV 91.6, MCH 29.3, MCHC 32.0, RDW 15.3, Plt Count 136 L, MPV 9.9, Neut % (Auto) 88.8 H, Lymph % (Auto) 6.3 L, [place] % (Auto) 4.0, Eos % (Auto) 0.6, Baso % (Auto) 0.3, Neut # (Auto) 8.4 H, Lymph # (Auto) 0.6 L, [place] # (Auto) 0.4, Eos # (Auto) 0.1, Baso # (Auto) 0.0, Total Counted 100, Neutrophils % (Manual) 87 H, Lymphocytes % (Manual) 6 L, Monocytes % (Manual) 7, Platelet Estimate Normal, RBC Morphology Normal, Sodium 137, Potassium 4.6, Chloride 102, Carbon Dioxide 22, Anion Gap 17.6 H, BUN 84 H, Creatinine 3.90 H, Estimated Creat Clear 18, Estimated GFR 15 L*, Est GFR ( Amer) 18 L*, Glucose 135 H, Calcium 9.4, Total Bilirubin 1.0, AST 25, ALT 18, Alkaline Phosphatase 77, Troponin I < 0.01, Total Protein 7.4, Albumin 4.3, Globulin 3.1, Albumin/Globulin Ratio 1.4 02/20/24 02:30: Urine Color Yellow, Urine Appearance Clear, Urine pH 5.5, Ur Specific [place] 1.020, Urine Protein Negative, Urine Glucose (UA) Negative, Urine Ketones Negative, Urine Blood Negative, Urine Nitrate Negative, Urine Bilirubin Negative, Urine Urobilinogen 0.2, Ur Leukocyte Esterase Negative, Urine RBC None, Urine WBC Occasional, Ur Squamous Epith Cells Occasional, Urine Bacteria Trace 02/20/24 02:20 02/20/24 02:20 Orders (Tests/Meds): ED MEDICATIONS Generic Name Dose Route Start Last Admin Trade Name Freq PRN Reason Stop Dose Admin Lactated Ringer's 1,000 mls @ 999 mls/hr 02/20/24 02:23 02/20/24 02:32 Lactated Ringer's 1000 Ml Bag IV 02/20/24 03:23 999 mls/hr .Q1H1M ONE Administration Discontinued Medications Generic Name Dose Route Start Last Admin Trade Name Freq PRN Reason Stop Dose Admin Piperacillin Sod/Tazobactam 100 mls @ 200 mls/hr 02/20/24 02:23 02/20/24 02:42 Sod 4.5 gm/ Sodium Chloride IV 02/20/24 02:52 200 mls/hr ONCE ONE Administration Iopamidol 100 ml 02/20/24 03:01 02/20/24 03:02 Iopamidol-370 (76%);100ml Bottle IV 02/20/24 03:02 100 ml ONCE ONE Administration Morphine Sulfate 4 mg 02/20/24 02:23 02/20/24 02:31 Morphine 4mg/Ml Syringe IV 02/20/24 02:24 4 mg ONCE ONE Administration Ondansetron HCl 4 mg 02/20/24 02:23 02/20/24 02:32 Ondansetron 4mg/2ml Vial IV 02/20/24 02:24 4 mg ONCE ONE Administration Sodium Chloride 50 ml 02/20/24 03:01 02/20/24 03:02 0.9 % Sodium Chloride 50 Ml Vial IV 02/20/24 03:02 50 ml ONCE ONE Administration Sodium Chloride 10 ml 02/20/24 03:01 02/20/24 03:02 Sodium Chloride 0.9% 10ml Syr (Rad Only) IV 02/20/24 03:02 10 ml ONCE ONE Administration ORDERS Category Date Time Status CT angio abdomen pelvis Stat Cat Scan 02/20/24 02:[address] angio chest - dissection Stat Cat Scan 02/20/24 02:25 Ordered KUB (single view) [XR KUB] Stat Exams 02/20/24 03:06 Ordered XR abdomen min 2V Stat Exams 02/20/24 02:22 Taken CBC w/Auto Diff [Complete Blood Count Auto Diff] Stat Lab 02/20/24 02:20 Completed CMP [Comprehensive Metabolic Panel] Stat Lab 02/20/24 02:20 Completed Trop I [Troponin I] Stat Lab 02/20/24 02:20 Completed Troponin I Q3H Lab 02/20/24 05:30 Ordered Troponin I Q3H Lab 02/20/24 08:30 Ordered Urinalysis and Microscopic Stat Lab 02/20/24 02:30 Completed Blood Culture Stat Micro 02/20/24 02:35 Received ECG Request Stat Y 02/20/24 02:23 Ordered Medical Decision Narrative: In summary, this 78year old male presents to the emergency department today with abdominal pain, nausea. Comorbidities of current condition include diabetes, kidney dysfunction, hypertension, hyperlipidemia, chronic mesenteric ischemia on blood thinners. All of these increases overall morbidity and risk for complications of these conditions including acute mesenteric ischemia. On initial evaluation patient is hemodynamically stable, afebrile, abdomen is distended, tense, tender, guarding, rebound, acute abdomen. Cardiopulmonary exam reassuring. I do not appreciate obvious mass on the abdomen though patient states he feels a lump in the right abdominal wall.. Differential diagnosis includes but is not limited to acute mesenteric ischemia, pneumatosis, colitis, perforated viscus, peritonitis, urinary retention, urinary tract infection, ACS, hernia, bowel obstruction, patient does not meet criteria for sepsis though it was considered. Based on these concerns, I ordered EKG, troponin, basic labs, given concern for peritonitis on exam I ordered Zosyn empirically, IV fluids, pain medications, patient is also getting a KUB and CT angiography. I have significant concerns for severe intra-abdominal pathology. Patient has previously been admitted at [facility] for chronic mesenteric ischemia, I anticipate likely having to transfer this patient for findings of acute abdomen in the setting of known chronic mesenteric ischemia. KUB personally interpreted demonstrates severely dilated loops of bowel concerning for obstruction, no obvious free air. Radiology read pending. Given these findings, patient will require transfer due to concerns for surgically emergent abdomen. [facility] was called for concerns of peritonitis, acute abdomen with findings of obstruction on x-ray in the setting of known chronic mesenteric ischemia. Mercado catheter was placed with limited urine output. NG tube was placed for gastric decompression. EKG personally interpreted demonstrates sinus bradycardia, rate 55, OK is slightly prolonged at 205, right bundle branch block present, QTc 481, no STEMI Labs demonstrate worsening kidney dysfunction, no leukocytosis, mild anemia. No transaminitis or hyperbilirubinemia. UA negative for findings of infection. Despite patient's poor kidney dysfunction, I believe the benefits of contrasted CT exam outweigh the risk of furthering kidney dysfunction at this time. Patient will receive contrasted exams. Discussed with Dr. Jaffe at [facility] my concerns for patient's acute abdomen, findings of obstruction, and possibility of acute on chronic mesenteric ischemia as well as his worsening kidney dysfunction. Patient was accepted for ED to ED transfer. Given patient's critical status, I believe it is most prudent to transfer the patient via helicopter. [facility] [place] [id number]. [place] angiography of the chest does not demonstrate obvious thoracic aortic abnormality, CT angiography of the abdomen, pelvis demonstrates findings concerning for fluid in the pelvis, significantly dilated bowel loops. Radiology read pending. Repeat KUB on my personal interpretation after NG placement demonstrates distal tip of the NG tube in the stomach. [id number] air transport team arrived. Patient continues to be hemodynamically stable and is appropriate for transfer at this time. Critical Care Critical Care Time Critical Care Time: Yes Attestation: On 02/20/24, the high probability of a clinically significant, sudden or life threatening deterioration of the following system(s) (renal, GI, cardiac) required my full and direct attention, intervention and personal management. The time I documented below is in addition to time spent performing reported procedures but includes the following listed in this critical care notation. Total Time Total Critical Care Time: 45
[2024-02-20] MEDS: MORPHINE 4MG/ML SYRINGE 4 MG IV (02:31)
[2024-02-20] MEDS: ONDANSETRON 4MG/2ML VIAL 4 MG IV (02:32)
[2024-02-20] MEDS: LACTATED RINGERS 1000ML 1,000 ML 999 ML IV (02:32)
[2024-02-20 02:39] LABS: Basophils % 0.3 % (0.1-2.0); Eosinophils # 0.1 K/mm3 (0.0-0.4); Eosinophils % 0.6 % (0.1-12.0); Hematocrit 31.9 % (42.0-52.0); Hemoglobin 10.2 g/dL (14.1-18.0); Lymphocytes # 0.6 K/mm3 (0.7-4.5); Lymphocytes % 6.3 % (10-50); Mean Corpuscular Hemoglobin 29.3 pg (27.0-31.2); Mean Corpuscular Volume 91.6 fl (80-94); Mean Platelet Volume 9.9 fl (7.4-10.4); Monocytes # 0.4 K/mm3 (0.1-1.0); Neutrophils # 8.4 K/mm3 (1.8-7.8); Neutrophils % 88.8 % (37.0-80.0); Platelet Count 136 K/mm3 (142-424); Red Blood Count 3.48 M/mm3 (4.60-6.20); Red Cell Distribution Width 15.3 % (11.5-17.5); White Blood Count 9.5 K/mm3 (4.8-10.8)
[2024-02-20 02:39] LABS: Microscopic, Urine URINE MICROSCOPIC (MICROSCOPIC)
[2024-02-20 02:41] LABS: Appearance,Urine CLEAR (Clear); Bilirubin,Urine Negative (Negative); Blood, Urine Negative (Negative); Color,Urine YELLOW (Yellow); Glucose,Urine (UA) Negative (Negative); Ketones,Urine Negative (Negative); Leukocyte Esterase,Urine Negative (Negative); Nitrate,Urine Negative (Negative); PH,Urine 5.5 (5.0-8.5); Protein,Urine Negative (Negative); Urobilinogen,Urine 0.2 EU/dl (0.2)
--- NOTE | 2024-02-20 02:41 | PC.NURSE ---
Called [facility] about transfer of the pt. Dr Alberts is speaking to Dr Jaffe now. CR
[2024-02-20 02:42] LABS: Chloride 102 mmol/L (98-107)
[2024-02-20] MEDS: PIPERACILLIN/TAZO 4.5 GM in 0.9 % SODIUM CHLORIDE 100 ML IV (02:42)
[2024-02-20 02:43] LABS: MANUAL DIFFERENTIAL MANUAL DIFFERENTIAL (MANUAL DIFF); Potassium 4.6 mmoL/L (3.5-5.1); Sodium 137 mmol/L (136-145)
[2024-02-20 02:45] VITALS: BP 126/46; PULSE 57; RESP 12; O2SAT 94
[2024-02-20 02:45] LABS: Alanine Aminotransferase 18 U/L (12-78); Aspartate Amino Transferase 25 U/L (17-59); Creatinine Clearance Estimated 18 mL/min (50-200); Estimated Glomerular Filt Rate 15 ml/min (>60); GFR (African American) 18 ML/MIN (>60)
--- NOTE | 2024-02-20 02:45 | PC.NURSE ---
[facility] accepted the flight. 22 min ETA. Pt accepted by [facility]. CR
[2024-02-20 02:46] LABS: Albumin Level 4.3 g/dl (3.5-5.0); Albumin/Globulin Ratio 1.4 (1.1-1.8); Alkaline Phosphatase 77 U/L (38-126); Anion Gap 17.6 mEq/L (5-15); Calcium 9.4 mg/dl (8.4-10.2); Carbon Dioxide 22 mmol/L (22.0-30.0); Globulin 3.1 g/dL (1.3-3.2); Glucose 135 mg/dl (74-100); Total Protein,Serum 7.4 g/dl (6.3-8.2)
[2024-02-20 02:49] LABS: Blood Urea Nitrogen 84 mg/dl (9-20)
[2024-02-20 02:53] LABS: Squamous Epithelial Cell,Urine Occasional #/hpf (0-5); WBC,Urine Occasional #/hpf (0-3)
[2024-02-20 02:54] LABS: Bacteria,Urine Trace /lpf
[2024-02-20 02:58] LABS: Lymphocytes % 6 % (10-50); Monocytes % 7 % (2-9); Neutrophils % 87 % (42-76); Platelet Estimate Normal; RBC Morphology Normal; Total Cells Counted 100
[2024-02-20 02:59] LABS: Troponin I < 0.01 ng/ml (0.00-0.034)
[2024-02-20 03:00] VITALS: BP 135/48; PULSE 60; RESP 19; O2SAT 92
--- NOTE | 2024-02-20 03:00 | PC.NURSE ---
[facility] called back [place] [facility] will be taking this call. ETA is 21 mins. CR
[2024-02-20] MEDS: IOPAMIDOL-370 (76%);100ML BOTTLE 100 ML IV (03:02)
[2024-02-20] MEDS: 0.9 % SODIUM CHLORIDE 50 ML VIAL IV (03:02)
[2024-02-20] MEDS: SODIUM CHLORIDE 0.9% 10ML SYR (RAD ONLY) 10 ML IV (03:02)
--- NOTE | 2024-02-20 03:06 | XR_ITS ---
PROCEDURE INFORMATION: Exam: XR Abdomen Exam date and time: 02/20/2024 3:03 AM Age: 78 years old Clinical indication: Device placement; Gi device; Nasogastric tube; Additional info: Verify gastric tube TECHNIQUE: Imaging protocol: Radiologic exam of the abdomen. Views: Frontal supine view of the abdomen. 1 View. COMPARISON: CT ANGIO ABDOMEN PELVIS 02/20/2024 2:52 AM FINDINGS: Tubes, catheters and devices: Nasogastric tube side-port is noted at or just above the GE junction. This should be advanced. Gastrointestinal tract: Persistent air distended colon. Bones/joints: Unremarkable. IMPRESSION: Nasogastric tube side port is at or just above the GE junction and should be advanced.
--- NOTE | 2024-02-20 03:13 | PC.NURSE ---
Report called to [facility] at ER
[2024-02-20 03:14] VITALS: BP 126/46; PULSE 61; RESP 13; TEMP 36.4; O2SAT 94
== END 2024-02-20 03:29 | disposition short-term general hospital (02) ==
PROVIDERS: Emergency Provider Emergency Medicine; PCP Nurse Practitioner Family
DX: R10.0 Acute abdomen (principal); K56.609 Unspecified intestinal obstruction, unspecified as to partial versus complete obstruction; R00.1 Bradycardia, unspecified; I45.19 Other right bundle-branch block; N28.9 Disorder of kidney and ureter, unspecified; E11.9 Type 2 diabetes mellitus without complications; E03.9 Hypothyroidism, unspecified; I11.0 Hypertensive heart disease with heart failure; I25.10 Atherosclerotic heart disease of native coronary artery without angina pectoris; I50.9 Heart failure, unspecified; I65.29 Occlusion and stenosis of unspecified carotid artery; I48.0 Paroxysmal atrial fibrillation; Z79.4 Long term (current) use of insulin; Z79.01 Long term (current) use of anticoagulants
CPT/HCPCS: 51702; 71275; 74018; 74019; 74174; 80053; 81001; 84484; 85007; 85025; 85027; 87040; 93005; 96365; 96375; 99291; J2405; J2543; Q9967